=== PATIENT | female | born 1975 | race Caucasian/White ===

== ENCOUNTER 2018-06-05 22:01 | Emergency (ER) | payer MEDICARE ==
[~2018-06-05] VITALS: Ht 170.2 cm; Wt 106.8 kg
[2018-06-05 22:14] VITALS: TEMP 98.9
[2018-06-05] MEDS ORDERED: ZITHROMAX Z PA250 MG PO (22:49)
[2018-06-05] MEDS ORDERED: PREDNISONE20 MG PO (22:49)
[2018-06-05 23:12] LABS: BASO % 0.2 % (0.0-2.0); EOS % 0.1 % (0-4.0); GRAN # 10.9 (1.4-6.5); GRAN % 76.7 % (42.2-75.2); HEMATOCRIT 42.9 % (37.0-47.0); HEMOGLOBIN 14.2 g/dl (12.5-16.0); LYMPH # 2.4 (1.2-3.4); LYMPH % 16.9 % (20.0-51.0); MEAN CELL VOLUME 92 fl (80.0-100.0); MEAN CORPUSCULAR HEMOGLOBIN 31 pg (27.0-31.0); MEAN CORPUSCULAR HGB CONC 33 g/dl (33.0-37.0); MEAN PLATELET VOLUME 9.5 fl (7.4-10.4); MONO # 0.8 (0.1-0.6); MONO % 5.7 % (1.7-9.3); PLATELET COUNT 259 K/mm3 (130-400); RED BLOOD COUNT 4.66 M/mm3 (4.10-5.30); REDCELL DISTRIBUTION WIDTH-CV 12.7 % (11.5-14.5)
[2018-06-05 23:24] LABS: ALANINE AMINOTRANSFERASE 20 U/L (9-52); ALBUMIN 4.5 gm/dL (3.5-5.0); ALKALINE PHOSPHATASE 89 U/L (50-136); ANION GAP 12 mmol/L (7-16); AST,SGOT 28 U/L (15-37); BILIRUBIN,TOTAL 0.4 mg/dL (0.0-1.0); BLOOD UREA NITROGEN 8 mg/dL (7-17); CALCIUM 9.3 mg/dL (8.4-10.2); CARBON DIOXIDE 25 mmol/L (22-30); CHLORIDE 101 mmol/L (98-107); CREATININE, serum 0.86 mg/dL (0.52-1.25); GLUCOSE 114 mg/dL (74-106); POTASSIUM 4.3 mmol/L (3.4-5.0); SODIUM 138 mmol/L (137-145); TOTAL PROTEIN 7.9 gm/dL (6.4-8.2)
[2018-06-05 23:38] LABS: TROPONIN-I < 0.012 ng/mL (0.000-0.035)
[2018-06-05] MEDS ORDERED: ZYRTEC 10MG10 MG PO (23:38)
[2018-06-05] MEDS ORDERED: PRISTIQ100 MG PO (23:38)
[2018-06-05] MEDS ORDERED: TIROSINT88 MC1 PO (23:38)
[2018-06-05] MEDS ORDERED: ROBAXIN 50500 MG/TAB PO (23:39)
[2018-06-05] MEDS ORDERED: FLEXERIL 1010 MG/TAB PO (23:39)
[2018-06-05] MEDS ORDERED: VALIUM 10MG10 MG/TAB PO (23:39)
[2018-06-05] MEDS ORDERED: LIORESAL 1010 MG/TAB PO (23:40)
[2018-06-05] MEDS ORDERED: ADVIL200 MG PO (23:40)
[2018-06-05] MEDS ORDERED: DESYREL 100MG100 MG PO (23:40)
[2018-06-05] MEDS ORDERED: TYLENOL 500MG500 MG PO (23:40)
[2018-06-05] MEDS ORDERED: NATURAL MAGNES200 MG PO (23:41)
[2018-06-06 00:35] VITALS: BP 144/96; PULSE 119
== END 2018-06-06 00:50 | disposition home or self-care (01) ==
LOC: COL.ER 22:01
PROVIDERS: Emergency Medicine
DX: J20.9 Acute bronchitis, unspecified (principal); Z98.890 Other specified postprocedural states
CPT/HCPCS: J1885; J2930; J7120

== ENCOUNTER 2018-06-09 21:01 | Emergency (ER) | payer MEDICARE ==
[~2018-06-09] VITALS: Ht 170.2 cm; Wt 111.3 kg
[~2018-06-09 21:01] MED LIST: ADVIL200 MG PO; DESYREL 100MG100 MG PO; FLEXERIL 1010 MG/TAB PO; LIORESAL 1010 MG/TAB PO; NATURAL MAGNES200 MG PO; PREDNISONE20 MG PO; PRISTIQ100 MG PO; ROBAXIN 50500 MG/TAB PO; TIROSINT88 MC1 PO; TYLENOL 500MG500 MG PO; VALIUM 10MG10 MG/TAB PO; ZITHROMAX Z PA250 MG PO; ZYRTEC 10MG10 MG PO
[2018-06-09 21:06] VITALS: TEMP 97.8
[2018-06-09] MEDS ORDERED: XOPENEX HF0.045 MG/A IH (21:28)
[2018-06-09 21:40] LABS: BASO % 0.1 % (0.0-2.0); GRAN # 7.4 (1.4-6.5); GRAN % 82.5 % (42.2-75.2); HEMATOCRIT 40.9 % (37.0-47.0); HEMOGLOBIN 13.7 g/dl (12.5-16.0); LYMPH # 1.4 (1.2-3.4); LYMPH % 15.8 % (20.0-51.0); MEAN CELL VOLUME 91 fl (80.0-100.0); MEAN CORPUSCULAR HEMOGLOBIN 30 pg (27.0-31.0); MEAN CORPUSCULAR HGB CONC 34 g/dl (33.0-37.0); MEAN PLATELET VOLUME 9.4 fl (7.4-10.4); MONO # 0.1 (0.1-0.6); MONO % 0.8 % (1.7-9.3); PLATELET COUNT 341 K/mm3 (130-400); RED BLOOD COUNT 4.52 M/mm3 (4.10-5.30); REDCELL DISTRIBUTION WIDTH-CV 12.5 % (11.5-14.5)
[2018-06-09 22:07] LABS: ALANINE AMINOTRANSFERASE 18 U/L (9-52); ALBUMIN 4.1 gm/dL (3.5-5.0); ALKALINE PHOSPHATASE 66 U/L (50-136); ANION GAP 12 mmol/L (7-16); AST,SGOT 31 U/L (15-37); BILIRUBIN,TOTAL 0.2 mg/dL (0.0-1.0); BLOOD UREA NITROGEN 17 mg/dL (7-17); CALCIUM 9.2 mg/dL (8.4-10.2); CARBON DIOXIDE 24 mmol/L (22-30); CHLORIDE 104 mmol/L (98-107); CREATININE, serum 0.75 mg/dL (0.52-1.25); GLUCOSE 142 mg/dL (74-106); POTASSIUM 3.7 mmol/L (3.4-5.0); SODIUM 139 mmol/L (137-145); TOTAL PROTEIN 7.4 gm/dL (6.4-8.2)
[2018-06-09 22:19] LABS: TROPONIN-I < 0.012 ng/mL (0.000-0.035)
[2018-06-09] MEDS ORDERED: DOXYCYCLINE 10100 MG PO (22:38)
[2018-06-10 00:09] VITALS: BP 147/72; PULSE 75
== END 2018-06-10 00:09 | disposition home or self-care (01) ==
LOC: COL.ER 21:01
PROVIDERS: Emergency Medicine
DX: R05 Cough (principal)
CPT/HCPCS: A9284; J7120; Q9967